=== PATIENT | male | born 1990 | race Caucasian/White ===

== ENCOUNTER 2018-02-14 12:36 | Emergency (ER) | payer SELFPAY ==
[~2018-02-14] VITALS: Ht 198.1 cm; Wt 95.0 kg
[~2018-02-14 12:36] MED LIST: BACT800T5 PO
[2018-02-14 12:58] VITALS: BP 140/70; PULSE 95; RESP 16; TEMP 98.4; O2SAT 98
[2018-02-14] MEDS ORDERED: IBUP1TAB7 PO (13:25)
[2018-02-14] MEDS ORDERED: SILV1CRE20 TOPICAL (13:25)
[2018-02-14] MEDS ORDERED: BACT800T5 PO (13:27)
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
[2018-02-14] MEDS ORDERED: TETANUS/DIPHTHERIA TOXOID ADULT 0.5 ML VIAL IM ONE (13:30)
[2018-02-14] MEDS ORDERED: SILVER SULFADIAZINE 1% CR 50 GM JAR TOPICAL ONE (13:30)
[2018-02-14] MEDS ORDERED: IBUPROFEN 800 MG TAB PO ONE (13:30)
== END 2018-02-14 13:48 | disposition home or self-care (01) ==
LOC: PHEFT 12:36
DX: T22.211A Burn of second degree of right forearm, initial encounter (principal); F17.200 Nicotine dependence, unspecified, uncomplicated; Z23 Encounter for immunization; Z87.39 Personal history of other diseases of the musculoskeletal system and connective tissue; X10.2XXA Contact with fats and cooking oils, initial encounter; Y93.G3 Activity, cooking and baking
CPT/HCPCS: 16020; 90471; 90714